=== PATIENT | female | born 1970 | race Caucasian/White ===

== ENCOUNTER 2024-01-20 09:13 | Emergency (ER) | payer OTHER ==
[2024-01-20 09:29] VITALS: BP 126/92; PULSE 67; RESP 18; TEMP 98.6; BMI 24.0
[2024-01-20] MEDS ORDERED: LIDOCAINE 5% TOPICAL PATCH ONE (09:49)
[2024-01-20] MEDS ORDERED: IBUPROFEN 400 MG TABLET (FP) PO ONE (09:49)
[2024-01-20] MEDS ORDERED: ACETAMINOPHEN 325 MG TABLET (FP) ONE (09:49)
[2024-01-20] MEDS: IBUPROFEN 400 MG TABLET (FP) PO ONE (09:52)
[2024-01-20] MEDS: ACETAMINOPHEN 325 MG TABLET (FP) PO ONE (09:52)
[2024-01-20] MEDS: LIDOCAINE 5% TOPICAL PATCH TP ONE (10:10)
[2024-01-20] MEDS ORDERED: LIDOCAINE PATCH REMOVAL MC ONE (22:00)
== END 2024-01-20 10:50 | disposition home or self-care (01) ==
LOC: FER 09:13
DX: R07.89 Other chest pain (principal); M53.3 Sacrococcygeal disorders, not elsewhere classified; V49.50XA Passenger injured in collision with unspecified motor vehicles in traffic accident, initial encounter
CPT/HCPCS: 71046-TC-FY; 72170-TC-FY; 99284-25